=== PATIENT | female | born 1955 | race Caucasian/White ===

== ENCOUNTER 2020-04-16 23:30 | Emergency (ER) | payer MEDICARE, OTHER ==
[2020-04-16 23:39] VITALS: BP 156/99; PULSE 111
[2020-04-16] MEDS ORDERED: Sodium Chloride 0.9% 10 ML Syringe FLUSH PRN (23:46)
[2020-04-16] MEDS ORDERED: Sodium Chloride 0.9% 500 ML IV ONE (23:47)
--- NOTE | 2020-04-16 23:47 | EDM.PDOC ---
ED HPI GENERAL MEDICAL PROBLEM - General Chief Complaint: Genitourinary Problem Stated Complaint: [facility] Time Seen by Provider: 04/16/20 23:44 Source of Information: Reports: Patient, EMS, RN Notes Reviewed - History of Present Illness INITIAL COMMENTS - FREE TEXT/NARRATIVE: 65 yr old female comes has been brought in by EMS for generalized weakness, difficulty walking. She was noted to be incontinent of foul smelling urine upon EMS arrival. With their help she was able to walk to and from her bathroom prior to transport. She has void frequency and dysuria. Probable chills, no definite fever. No chest pain, cough or difficulty breathing. Hx Htn, diabetes on insulin. - Related Data Allergies Allergy/AdvReac Type Severity Reaction Status Date / Time No Known Allergies Allergy Verified 04/16/20 23:39 Home Meds: Home Meds Aspirin 81 mg PO DAILY 06/29/16 [History] Calcium Carbonate/Vitamin D3 [Calcium 600-Vit D3 800 Tablet] 1 each PO DAILY 06/29/16 [History] Multivitamin with Minerals [Fer Multivitamin with Mineral] 1 tab PO DAILY 06/29/16 [History] allopurinoL [Allopurinol] 150 mg PO DAILY 06/29/16 [History] Apixaban [Eliquis] 2.5 mg PO BID #60 tablet 07/04/16 [Rx] Cholecalciferol (Vitamin D3) [Vitamin D3] 1,000 units PO DAILY 04/01/19 [History] DULoxetine [Cymbalta] 30 mg PO DAILY 04/01/19 [History] Diltiazem [Dilacor XR] 240 mg PO DAILY 04/01/19 [History] Levothyroxine 25 mcg PO DAILY 04/01/19 [History] Liraglutide [Victoza] 1.8 mg SUBCUT DAILY 04/01/19 [History] Oxybutynin 5 mg PO BID 04/01/19 [History] Rosuvastatin [Crestor] 20 mg PO DAILY 04/01/19 [History] Albuterol/Ipratropium [DuoNeb 3.0-0.5 MG/3 ML] 3 ml NEB QIDRT PRN neb 04/08/19 [Rx] Azithromycin [Zithromax] 250 mg PO DAILY #3 tab 04/08/19 [Rx] Furosemide [Lasix] 20 mg PO DAILY #7 tablet 04/08/19 [Rx] Insulin Aspart [NovoLOG] See Protocol SQ WITHMEALSANDBED #3 bottle 04/08/19 [Rx] Insulin Glarg,Human.Rec.Analog [Lantus] 42 unit SUBCUT Q24H ml 04/08/19 [Rx] Insulin Lispro [HumaLOG] 10 unit SUBCUT TIDAC vial 04/08/19 [Rx] Magnesium Oxide 400 mg PO BID #10 tablet 04/08/19 [Rx] Metoprolol Succinate [Toprol XL] 75 mg PO DAILY 30 Days tab.er 04/08/19 [Rx] Sennosides [Senna] 8.6 mg PO DAILY #10 04/08/19 [Rx] Nitrofurantoin Monohyd/M-Cryst [Macrobid 100 mg Capsule] 100 mg PO BID #14 capsule 04/17/20 [Rx] Past Medical History HEENT History: Reports: Cataract Cardiovascular History: Reports: Afib, High Cholesterol, Hypertension Respiratory History: Reports: None Gastrointestinal History: Reports: None Genitourinary History: Reports: Urinary Incontinence, Other (See Below) Other Genitourinary History: urine frequency, states that kidneys are not functioning properly. ANTHROPOMETRIST History: Reports: None Musculoskeletal History: Reports: Arthritis, Gout Neurological History: Reports: None Psychiatric History: Reports: None Endocrine/Metabolic History: Reports: Diabetes, Type II, Other (See Below) Other Endocrine/Metabolic History: takes something for thyroid can't remember Hematologic History: Reports: None Immunologic History: Reports: None Oncologic (Cancer) History: Reports: None Dermatologic History: Reports: None - Infectious Disease History Infectious Disease History: Reports: None - Past Surgical History HEENT Surgical History: Reports: None Cardiovascular Surgical History: Reports: None Female Surgical History: Reports: None Endocrine Surgical History: Reports: None Musculoskeletal Surgical History: Reports: None Social & Family History - Family History Family Medical History: Noncontributory - Tobacco Use Smoking Status *Q: Never Smoker - Caffeine Use Caffeine Use: Reports: None - Recreational Drug Use Recreational Drug Use: No ED ROS GENERAL - Review of Systems Review Of Systems: See Below Constitutional: Reports: Chills. Denies: Fever HEENT: Reports: No Symptoms Respiratory: Denies: Shortness of Breath, Cough Cardiovascular: Denies: Chest Pain Endocrine: Reports: Fatigue GI/Abdominal: Denies: Abdominal Pain, Nausea, Vomiting Musculoskeletal: Reports: No Symptoms Skin: Reports: No Symptoms Neurological: Reports: Dizziness, Difficulty Walking. Denies: Numbness, Tingling, Trouble Speaking, Weakness ED EXAM, GENERAL - Physical Exam Exam: See Below General Appearance: Alert, No Apparent Distress (at time of exam) Eye Exam: Bilateral Eye: PERRL Head: Atraumatic. No: Facial Swelling Neck: Supple Respiratory/Chest: No Respiratory Distress, Lungs Clear, Normal Breath Sounds. No: Rhonchi, Wheezing Cardiovascular: Tachycardia GI/Abdominal: Soft, Non-Tender Back Exam: No: CVA Tenderness (L), CVA Tenderness (R) Extremities: No: Leg Pain, Increased Warmth, Redness Neurological: Alert, No Motor/Sensory Deficits Skin Exam: Warm, Dry, Normal Color, No Rash Course - Vital Signs Last Recorded V/S: Last Vital Signs Temp 97.3 F 04/16/20 23:34 Pulse 111 H 04/16/20 23:34 Resp 18 04/16/20 23:34 BP 156/99 H 04/16/20 23:34 Pulse Ox 92 L 04/17/20 03:28 Orthostatic Blood Pressure [ 146/112 Standing] Orthostatic Blood Pressure [ 138/87 Supine] - Orders/Labs/Meds Labs: Laboratory Tests 04/16/20 04/16/20 04/16/20 Range/Units 23:43 23:43 23:43 WBC 6.00 (3.98-10.04) K/mm3 RBC 5.25 H (3.98-5.22) M/mm3 Hgb 13.5 (11.2-15.7) gm/dl Hct 43.0 (34.1-44.9) % MCV 81.9 D (79.4-94.8) fl MCH 25.7 (25.6-32.2) pg MCHC 31.4 L (32.2-35.5) g/dl RDW Std Deviation 50.6 H (36.4-46.3) fL Plt Count 323 (182-369) K/mm3 MPV 10.2 (9.4-12.3) fl Neut % (Auto) 72.8 H (34.0-71.1) % Lymph % (Auto) 12.5 L (19.3-51.7) % [place] % (Auto) 13.2 H (4.7-12.5) % Eos % (Auto) 0.8 (0.7-5.8) Baso % (Auto) 0.5 (0.1-1.2) % Neut # (Auto) 4.37 (1.56-6.13) K/mm3 Lymph # (Auto) 0.75 L (1.18-3.74) K/mm3 [place]ie # (Auto) 0.79 H (0.24-0.36) K/mm3 Eos # (Auto) 0.05 (0.04-0.36) K/mm3 Baso # (Auto) 0.03 (0.01-0.08) K/mm3 Puncture Site ABG pH (7.35-7.45) ABG pCO2 (35.0-45.0) mmHg ABG pO2 (80.0-100.0) mmHg ABG HCO3 (22.0-26.0) meq/L ABG O2 Saturation (96.0-97.0) % ABG Base Excess (-2-2.0) Jose Test O2 Delivery Device Oxygen Flow Rate Sodium 134 L (136-145) mEq/L Potassium 4.1 (3.5-5.1) mEq/L Chloride 98 (98-107) mEq/L Carbon Dioxide 29 (21-32) mEq/L Anion Gap 11.1 (5-15) BUN 36 H (7-18) mg/dL Creatinine 1.7 H (0.55-1.02) mg/dL Est Cr Clr Drug Dosing 23.07 mL/min Estimated GFR (MDRD) 30 (>60) mL/min BUN/Creatinine Ratio 21.2 H (14-18) Glucose 182 H (80-115) mg/dL Lactic Acid (0.4-2.0) mmol/L Calcium 9.6 (8.5-10.1) mg/dL Total Bilirubin 0.5 (0.2-1.0) mg/dL AST 22 (15-37) U/L ALT 33 (14-59) U/L Alkaline Phosphatase 117 H (46-116) U/L C-Reactive Protein 2.3 H* (<1.0) mg/dL NT-Pro-B Natriuret Pep (0-125) pg/mL Total Protein 7.9 (6.4-8.2) g/dl Albumin 2.8 L (3.4-5.0) g/dl Globulin 5.1 gm/dL Albumin/Globulin Ratio 0.6 L (1-2) Urine Color (Yellow) Urine Appearance (Clear) Urine pH (5.0-8.0) Ur Specific [place] (1.005-1.030) Urine Protein (Negative) Urine Glucose (UA) (Negative) Urine Ketones (Negative) Urine Occult Blood (Negative) Urine Nitrite (Negative) Urine Bilirubin (Negative) Urine Urobilinogen (0.2-1.0) Ur Leukocyte Esterase (Negative) Urine RBC (0-5) /hpf Urine WBC (0-5) /hpf Urine WBC Clumps (NOT SEEN) /hpf Ur Epithelial Cells (0-5) /hpf Urine Bacteria (FEW) /hpf Urine Mucus (FEW) /hpf 04/16/20 04/17/20 04/17/20 Range/Units 23:46 00:15 02:47 WBC (3.98-10.04) K/mm3 RBC (3.98-5.22) M/mm3 Hgb (11.2-15.7) gm/dl Hct (34.1-44.9) % MCV (79.4-94.8) fl MCH (25.6-32.2) pg MCHC (32.2-35.5) g/dl RDW Std Deviation (36.4-46.3) fL Plt Count (182-369) K/mm3 MPV (9.4-12.3) fl Neut % (Auto) (34.0-71.1) % Lymph % (Auto) (19.3-51.7) % Davie % (Auto) (4.7-12.5) % Eos % (Auto) (0.7-5.8) Baso % (Auto) (0.1-1.2) % Neut # (Auto) (1.56-6.13) K/mm3 Lymph # (Auto) (1.18-3.74) K/mm3 Davie # (Auto) (0.24-0.36) K/mm3 Eos # (Auto) (0.04-0.36) K/mm3 Baso # (Auto) (0.01-0.08) K/mm3 Puncture Site Lt radial ABG pH 7.43 (7.35-7.45) ABG pCO2 38.1 (35.0-45.0) mmHg ABG pO2 64.0 L (80.0-100.0) mmHg ABG HCO3 24.8 (22.0-26.0) meq/L ABG O2 Saturation 92.5 L (96.0-97.0) % ABG Base Excess 1.2 (-2-2.0) Jose Test Positive O2 Delivery Device Nasal cannula Oxygen Flow Rate 2.0 Sodium (136-145) mEq/L Potassium (3.5-5.1) mEq/L Chloride (98-107) mEq/L Carbon Dioxide (21-32) mEq/L Anion Gap (5-15) BUN (7-18) mg/dL Creatinine (0.55-1.02) mg/dL Est Cr Clr Drug Dosing mL/min Estimated GFR (MDRD) (>60) mL/min BUN/Creatinine Ratio (14-18) Glucose (80-115) mg/dL Lactic Acid 0.9 (0.4-2.0) mmol/L Calcium (8.5-10.1) mg/dL Total Bilirubin (0.2-1.0) mg/dL AST (15-37) U/L ALT (14-59) U/L Alkaline Phosphatase (46-116) U/L C-Reactive Protein (<1.0) mg/dL NT-Pro-B Natriuret Pep (0-125) pg/mL Total Protein (6.4-8.2) g/dl Albumin (3.4-5.0) g/dl Globulin gm/dL Albumin/Globulin Ratio (1-2) Urine Color Brown H (Yellow) Urine Appearance Turbid H (Clear) Urine pH 6.0 (5.0-8.0) Ur Specific [place] 1.020 (1.005-1.030) Urine Protein 3+ H (Negative) Urine Glucose (UA) Trace H (Negative) Urine Ketones Trace H (Negative) Urine Occult Blood 3+ H (Negative) Urine Nitrite Negative (Negative) Urine Bilirubin 2+ H (Negative) Urine Urobilinogen 1.0 (0.2-1.0) Ur Leukocyte Esterase 3+ H (Negative) Urine RBC Too numerous to cnt H (0-5) /hpf Urine WBC >100 H (0-5) /hpf Urine WBC Clumps Many (NOT SEEN) /hpf Ur Epithelial Cells Not seen (0-5) /hpf Urine Bacteria Many H (FEW) /hpf Urine Mucus Not seen (FEW) /hpf 04/17/20 Range/Units 03:40 WBC (3.98-10.04) K/mm3 RBC (3.98-5.22) M/mm3 Hgb (11.2-15.7) gm/dl Hct (34.1-44.9) % MCV (79.4-94.8) fl MCH (25.6-32.2) pg MCHC (32.2-35.5) g/dl RDW Std Deviation (36.4-46.3) fL Plt Count (182-369) K/mm3 MPV (9.4-12.3) fl Neut % (Auto) (34.0-71.1) % Lymph % (Auto) (19.3-51.7) % [place]ie % (Auto) (4.7-12.5) % Eos % (Auto) (0.7-5.8) Baso % (Auto) (0.1-1.2) % Neut # (Auto) (1.56-6.13) K/mm3 Lymph # (Auto) (1.18-3.74) K/mm3 [place]ie # (Auto) (0.24-0.36) K/mm3 Eos # (Auto) (0.04-0.36) K/mm3 Baso # (Auto) (0.01-0.08) K/mm3 Puncture Site ABG pH (7.35-7.45) ABG pCO2 (35.0-45.0) mmHg ABG pO2 (80.0-100.0) mmHg ABG HCO3 (22.0-26.0) meq/L ABG O2 Saturation (96.0-97.0) % ABG Base Excess (-2-2.0) Jose Test O2 Delivery Device Oxygen Flow Rate Sodium (136-145) mEq/L Potassium (3.5-5.1) mEq/L Chloride (98-107) mEq/L Carbon Dioxide (21-32) mEq/L Anion Gap (5-15) BUN (7-18) mg/dL Creatinine (0.55-1.02) mg/dL Est Cr Clr Drug Dosing mL/min Estimated GFR (MDRD) (>60) mL/min BUN/Creatinine Ratio (14-18) Glucose (80-115) mg/dL Lactic Acid (0.4-2.0) mmol/L Calcium (8.5-10.1) mg/dL Total Bilirubin (0.2-1.0) mg/dL AST (15-37) U/L ALT (14-59) U/L Alkaline Phosphatase (46-116) U/L C-Reactive Protein (<1.0) mg/dL NT-Pro-B Natriuret Pep 2481 H (0-125) pg/mL Total Protein (6.4-8.2) g/dl Albumin (3.4-5.0) g/dl Globulin gm/dL Albumin/Globulin Ratio (1-2) Urine Color (Yellow) Urine Appearance (Clear) Urine pH (5.0-8.0) Ur Specific [place] (1.005-1.030) Urine Protein (Negative) Urine Glucose (UA) (Negative) Urine Ketones (Negative) Urine Occult Blood (Negative) Urine Nitrite (Negative) Urine Bilirubin (Negative) Urine Urobilinogen (0.2-1.0) Ur Leukocyte Esterase (Negative) Urine RBC (0-5) /hpf Urine WBC (0-5) /hpf Urine WBC Clumps (NOT SEEN) /hpf Ur Epithelial Cells (0-5) /hpf Urine Bacteria (FEW) /hpf Urine Mucus (FEW) /hpf Meds: Medications Discontinued Medications Generic Name Dose Route Start Last Admin Trade Name Dipti PRN Reason Stop Dose Admin Albuterol/Ipratropium 3 ml 04/17/20 03:20 04/17/20 03:28 Duoneb 3.0-0.5 Mg/3 Ml NEB 04/17/20 03:21 3 ml ONETIME ONE Administration Furosemide 20 mg 04/17/20 03:20 04/17/20 03:47 Lasix IVPUSH 04/17/20 03:21 20 mg NOW ONE Administration Sodium Chloride 500 mls @ 999 mls/hr 04/16/20 23:47 04/17/20 00:40 Normal Saline IV 04/17/20 00:17 Infused .BOLUS ONE Infusion Ceftriaxone Sodium 2 gm/ 100 mls @ 200 mls/hr 04/17/20 00:58 04/17/20 01:17 Sodium Chloride IV 04/17/20 01:27 Not Given ONETIME ONE Ceftriaxone Sodium 2 gm/ 100 mls @ 200 mls/hr 04/17/20 01:15 04/17/20 01:23 Sodium Chloride IV 200 mls/hr Q24H ESDRAS Administration Nitrofurantoin Macrocrystals 100 mg 04/17/20 05:10 04/17/20 05:49 Macrobid PO 04/17/20 05:11 100 mg ONETIME ONE Administration Sodium Chloride 10 ml 04/16/20 23:46 04/17/20 00:04 Saline Flush FLUSH 10 ml ASDIRECTED PRN Administration Keep Vein Open - Re-Assessments/Exams Free Text/Narrative Re-Assessment/Exam: 04/17/20 01:52 Urine markedly infected, WBC nl, lactic acid 0.9, CRP 2.3. Have ordered rocephin 2 grams IV. Blood culture ordered with initial labs, urine culture has also been ordered. Will check ortho's once her 1 liter of NS is in and see how she does standing and walking. 04/17/20 02:40. She did OK with Orthos but had trouble getting up to her feet and was unstable walking even with 2 nurses helping her. I am also told she dropped her sats to 85, now 88 on room air, were 91 at time of arrival. Will check a CXR and ABGs. 04/17/20 03:45. CXR shows mild pul chato. ABG's show pO2 of 64 and otherwise nl. Have ordered a duoneb for her and also 20 mg lasix. 04/17/20 05:26Feeling much better. Has been up to the bathroom a time or 2 and doing very well with that, much stronger and more stable walking. She wants to go home. will start on macrobid 100 mg bid. Departure - Departure Time of Disposition: 05:29 Disposition: Home, Self-Care 01 Condition: Fair Clinical Impression: UTI, Urinary tract infectious disease - Discharge Information Prescriptions: Nitrofurantoin Monohyd/M-Cryst [Macrobid 100 mg Capsule] 100 mg PO BID #14 capsule Instructions: Urinary Tract Infection, Adult, [id number] Referrals: PCP,None [Primary Care Provider] - Forms: ED Department Discharge Additional Instructions: macrobid antibiotic 100 mg twice daily. You have been given your first dose here in the ED. Next dose this evening and than continue that twice daily for 1 week or until gone. That prescription has been sent electronically to the [facility] pharmacy. Follow up with Dr Rodriguez or one of the clinic providers Monday or next available appointment early next week for recheck. Return to ED as needed if symptoms worsening in any way. Sepsis Event Note (ED) - Evaluation Sepsis Screening Result: No Definite Risk
[2020-04-17] MEDS ORDERED: cefTRIAXone 2 GM in Sodium Chloride 0.9% 100 ML IV ONE (00:58)
[2020-04-17] MEDS ORDERED: cefTRIAXone 2 GM in Sodium Chloride 0.9% 100 ML IV SCH (01:15)
[2020-04-17] MEDS ORDERED: Furosemide 40 MG/4 ML VIAL IVPUSH ONE (03:20)
[2020-04-17] MEDS ORDERED: Albuterol/Ipratropium 3.0-0.5 MG/3 ML Neb Soln NEB ONE (03:20)
[2020-04-17] MEDS ORDERED: Nitrofurantoin Monohydrate/Macrocrystalline 100 MG Cap PO ONE (05:10)
--- NOTE | 2020-04-17 08:06 | CR ---
Chest: Portable view of the chest was obtained. Comparison: Prior chest x-ray of 06/29/16. Heart his slightly enlarged. Upper mediastinum is stable. Lungs are clear with no acute parenchymal change. Bony structures are grossly intact. Impression: 1. Heart slightly enlarged. 2. Nothing acute is appreciated on portable chest x-ray. Diagnostic code #2 This report was dictated in MDT
== END 2020-04-17 08:40 | disposition home or self-care (01) ==
LOC: JD.ED 23:30
DX: N39.0 Urinary tract infection, site not specified (principal); I48.91 Unspecified atrial fibrillation; E78.00 Pure hypercholesterolemia, unspecified; I10 Essential (primary) hypertension; M10.9 Gout, unspecified; E11.9 Type 2 diabetes mellitus without complications; Z79.4 Long term (current) use of insulin; Z79.82 Long term (current) use of aspirin; Z79.01 Long term (current) use of anticoagulants; Z79.899 Other long term (current) drug therapy
CPT/HCPCS: 36415; 36600; 71045; 80053; 81001; 82803; 83605; 83880; 85025; 86140; 87040; 87086; 87088; 87186; 94640; 96361; 96365; 96375; 99285; A9270; J0696; J1940; J7030; J7050; 99283; J7620-GY

== ENCOUNTER 2020-09-04 15:28 | Emergency (ER) | payer MEDICARE ==
[2020-09-04 15:40] VITALS: BP 128/81; PULSE 79
[2020-09-04] MEDS ORDERED: 50% Dextrose in Water 50 ML Syringe IVPUSH PRN (15:42)
[2020-09-04] MEDS ORDERED: Sodium Chloride 0.9% 10 ML Syringe FLUSH PRN (15:42)
[2020-09-04] MEDS ORDERED: cefTRIAXone 1 GM in Sodium Chloride 0.9% 100 ML IV ONE (16:37)
--- NOTE | 2020-09-04 17:47 | EDM.PDOC ---
<Ralph Bernabe - Last Filed: 09/08/20 07:14> ED HPI GENERAL MEDICAL PROBLEM - General Chief Complaint: Diabetic Complaint Stated Complaint: [facility] Time Seen by Provider: 09/04/20 15:42 - Related Data Allergies Allergy/AdvReac Type Severity Reaction Status Date / Time No Known Allergies Allergy Verified 09/04/20 19:53 Home Meds: Home Meds Aspirin 81 mg PO DAILY 06/29/16 [History] Calcium Carbonate/Vitamin D3 [Calcium 600-Vit D3 800 Tablet] 1 each PO DAILY 06/29/16 [History] Multivitamin with Minerals [Fer Multivitamin with Mineral] 1 tab PO DAILY 06/29/16 [History] allopurinoL [Allopurinol] 150 mg PO DAILY 06/29/16 [History] Apixaban [Eliquis] 2.5 mg PO BID #60 tablet 07/04/16 [Rx] Cholecalciferol (Vitamin D3) [Vitamin D3] 1,000 units PO DAILY 04/01/19 [History] DULoxetine [Cymbalta] 30 mg PO DAILY 04/01/19 [History] Diltiazem [Dilacor XR] 240 mg PO DAILY 04/01/19 [History] Levothyroxine 25 mcg PO DAILY 04/01/19 [History] Liraglutide [Victoza] 1.8 mg SUBCUT DAILY 04/01/19 [History] Oxybutynin 5 mg PO BID 04/01/19 [History] Rosuvastatin [Crestor] 20 mg PO DAILY 04/01/19 [History] Albuterol/Ipratropium [DuoNeb 3.0-0.5 MG/3 ML] 3 ml NEB QIDRT PRN neb 04/08/19 [Rx] Furosemide [Lasix] 20 mg PO DAILY #7 tablet 04/08/19 [Rx] Insulin Aspart [NovoLOG] See Protocol SQ WITHMEALSANDBED #3 bottle 04/08/19 [Rx] Insulin Glarg,Human.Rec.Analog [Lantus] 42 unit SUBCUT Q24H ml 04/08/19 [Rx] Insulin Lispro [HumaLOG] 10 unit SUBCUT TIDAC vial 04/08/19 [Rx] Magnesium Oxide 400 mg PO BID #10 tablet 04/08/19 [Rx] Metoprolol Succinate [Toprol XL] 75 mg PO DAILY 30 Days tab.er 04/08/19 [Rx] Sennosides [Senna] 8.6 mg PO DAILY #10 04/08/19 [Rx] Nitrofurantoin Monohyd/M-Cryst [Macrobid 100 mg Capsule] 100 mg PO BID #14 capsule 04/17/20 [Rx] Course - Re-Assessments/Exams Free Text/Narrative Re-Assessment/Exam: 09/07/20 07:06 In receipt of urine culture which is growing out Klebsiella,pneumoniae. It is sensitive to all antibiotics . Patient recieved Rocephin 1gm IV in the ED and was sent to [facility] in [facility] for admission. Culture report forwarded to [facility] in [facility]. Departure - Departure Disposition: DC/Tfer to [facility] 02 Clinical Impression: UTI, Urinary tract infectious disease, Nephrotic syndrome in diabetes mellitus Renal failure (ARF), acute on chronic Qualifiers: Acute renal failure type: unspecified Chronic kidney disease stage: unspecified stage Qualified Code(s): N17.9 - Acute kidney failure, unspecified - Discharge Information Referrals: PCP,None [Primary Care Provider] - Forms: ED Department Discharge <Jami Medina - Last Filed: 09/08/20 11:31> ED HPI GENERAL MEDICAL PROBLEM - General Source of Information: Reports: Patient, RN Notes Reviewed History Limitations: Reports: No Limitations - History of Present Illness INITIAL COMMENTS - FREE TEXT/NARRATIVE: Patient is a 65-year-old female presenting to the emergency department by [facility] with complaints of hypoglycemia. Of report was that the patient took her morning insulins which is 34 units of Lantus, 1.8 of Victoza, and 20 units of NovoLog, however set of eating breakfast she went back to bed. A friend came to check on her and help her with her afternoon insulin. They could not get her home glucose to read because it was too low. On EMS arrival, her glucose was 49. She received a half a sandwich, orange juice, glucose tabs which brought it up to 51. On presentation to the ER, her glucose was 80. She is alert and oriented. She does complain of some dysuria with urination and nursing reports that she has foul-smelling urine from a straight catheterization. Patient also voices concern with regards to periorbital edema which began yesterday with the right being worse than the left. She denies any pain or itching to her eyes. Past Medical History HEENT History: Reports: Cataract Cardiovascular History: Reports: Afib, High Cholesterol, Hypertension Respiratory History: Reports: None Gastrointestinal History: Reports: None Genitourinary History: Reports: Urinary Incontinence, Other (See Below) Other Genitourinary History: urine frequency, states that kidneys are not functioning properly. [employer] P[employer]ER History: Reports: None Musculoskeletal History: Reports: Arthritis, Gout Neurological History: Reports: None Psychiatric History: Reports: None Endocrine/Metabolic History: Reports: Diabetes, Type II, Other (See Below) Other Endocrine/Metabolic History: takes something for thyroid can't remember Hematologic History: Reports: None Immunologic History: Reports: None Oncologic (Cancer) History: Reports: None Dermatologic History: Reports: None - Infectious Disease History Infectious Disease History: Reports: None - Past Surgical History HEENT Surgical History: Reports: None Cardiovascular Surgical History: Reports: None Female Surgical History: Reports: None Endocrine Surgical History: Reports: None Musculoskeletal Surgical History: Reports: None Dermatological Surgical History: Reports: None Social & Family History - Family History Family Medical History: No Pertinent Family History - Tobacco Use Tobacco Use Status *Q: Former Tobacco User Used Tobacco, but Quit: Yes Month/Year Tobacco Last Used: 1999 Second Hand Smoke Exposure: No - Caffeine Use Caffeine Use: Reports: Coffee - Recreational Drug Use Recreational Drug Use: No ED ROS GENERAL - Review of Systems Review Of Systems: See Below Constitutional: Reports: No Symptoms. Denies: Fever, Chills, Weakness HEENT: Reports: Other (Periorbital edema bilaterally with the right worse than the left) Respiratory: Reports: No Symptoms. Denies: Shortness of Breath, Cough Cardiovascular: Reports: No Symptoms Endocrine: Reports: Low Glucose GI/Abdominal: Reports: No Symptoms : Reports: Dysuria, Frequency. Denies: Flank Pain Musculoskeletal: Reports: No Symptoms Skin: Reports: No Symptoms Neurological: Reports: No Symptoms Psychiatric: Reports: No Symptoms Hematologic/Lymphatic: Reports: No Symptoms Immunologic: Reports: No Symptoms ED EXAM GENERAL NO PERIP PULSE - Physical Exam Exam: See Below General Appearance: Alert, WD/WN, No Apparent Distress Eye Exam: Bilateral Eye: Periorbital Changes (Significant periorbital edema to the upper and lower eyelids on the right side. Mild periorbital edema to right eye.) Respiratory/Chest: No Respiratory Distress, Lungs Clear, Normal Breath Sounds, No Accessory Muscle Use, Chest Non-Tender Cardiovascular: Normal Peripheral Pulses, Regular Rate, Rhythm, No Edema, No Gallop, No JVD, No Murmur, No Rub GI/Abdominal: Normal Bowel Sounds, Soft, Non-Tender, No Organomegaly, No Distention, No Abnormal Bruit, No Mass Neurological: Alert, Oriented, CN II-XII Intact, Normal Cognition, Normal Gait, Normal Reflexes, No Motor/Sensory Deficits Psychiatric: Normal Affect, Normal Mood Course - Vital Signs Last Recorded V/S: Last Vital Signs Temp 98.1 F 09/04/20 15:34 Pulse 79 09/04/20 15:34 Resp 20 09/04/20 15:34 BP 128/81 09/04/20 15:34 Pulse Ox 91 L 09/04/20 15:34 - Orders/Labs/Meds Labs: Laboratory Tests 09/04/20 09/04/20 09/04/20 Range/Units 15:43 15:43 15:44 WBC (3.98-10.04) K/mm3 RBC (3.98-5.22) M/mm3 Hgb (11.2-15.7) gm/dl Hct (34.1-44.9) % MCV (79.4-94.8) fl MCH (25.6-32.2) pg MCHC (32.2-35.5) g/dl RDW Std Deviation (36.4-46.3) fL Plt Count (182-369) K/mm3 MPV (9.4-12.3) fl Neut % (Auto) (34.0-71.1) % Lymph % (Auto) (19.3-51.7) % [place] % (Auto) (4.7-12.5) % Eos % (Auto) (0.7-5.8) Baso % (Auto) (0.1-1.2) % Neut # (Auto) (1.56-6.13) K/mm3 Lymph # (Auto) (1.18-3.74) K/mm3 [place] # (Auto) (0.24-0.36) K/mm3 Eos # (Auto) (0.04-0.36) K/mm3 Baso # (Auto) (0.01-0.08) K/mm3 Manual Slide Review Sodium (136-145) mEq/L Potassium (3.5-5.1) mEq/L Chloride (98-107) mEq/L Carbon Dioxide (21-32) mEq/L Anion Gap (5-15) BUN (7-18) mg/dL Creatinine (0.55-1.02) mg/dL Est Cr Clr Drug Dosing mL/min Estimated GFR (MDRD) (>60) mL/min BUN/Creatinine Ratio (14-18) Glucose (80-115) mg/dL POC Glucose (80-115) mg/dL Lactic Acid (0.4-2.0) mmol/L Calcium (8.5-10.1) mg/dL Magnesium (1.8-2.4) mg/dl Total Bilirubin (0.2-1.0) mg/dL AST (15-37) U/L ALT (14-59) U/L Alkaline Phosphatase (46-116) U/L Troponin I (0.00-0.056) ng/mL C-Reactive Protein (<1.0) mg/dL NT-Pro-B Natriuret Pep (0-125) pg/mL Total Protein (6.4-8.2) g/dl Albumin (3.4-5.0) g/dl Globulin gm/dL Albumin/Globulin Ratio (1-2) Free T4 (0.76-1.46) ng/dL TSH 3rd Generation (0.358-3.74) uIU/mL Urine Color Yellow (Yellow) Urine Appearance Cloudy H (Clear) Urine pH 6.5 (5.0-8.0) Ur Specific Glennie 1.025 (1.005-1.030) Urine Protein 3+ H (Negative) Urine Glucose (UA) Negative (Negative) Urine Ketones Negative (Negative) Urine Occult Blood 2+ H (Negative) Urine Nitrite Negative (Negative) Urine Bilirubin Negative (Negative) Urine Urobilinogen 0.2 (0.2-1.0) Ur Leukocyte Esterase 2+ H (Negative) Urine RBC 0-5 (0-5) /hpf Urine WBC Too numerous to cnt H (0-5) /hpf Ur Squamous Epith Cells 0-5 (0-5) /hpf Urine Bacteria Many H (FEW) /hpf Urine Mucus Not seen (FEW) /hpf Ur Random Creatinine 52.6 (30.0-125.0) mg/dL U Random Total Protein 316.5 H (0.0-11.8) mg/dL SARS-CoV-2 RNA (DANNY) (NEGATIVE) 09/04/20 09/04/20 09/04/20 Range/Units 15:45 15:45 15:45 WBC 7.59 (3.98-10.04) K/mm3 RBC 4.96 (3.98-5.22) M/mm3 Hgb 11.6 D (11.2-15.7) gm/dl Hct 40.2 (34.1-44.9) % MCV 81.0 (79.4-94.8) fl MCH 23.4 L (25.6-32.2) pg MCHC 28.9 L (32.2-35.5) g/dl RDW Std Deviation 53.5 H (36.4-46.3) fL Plt Count 452 H D (182-369) K/mm3 MPV 9.4 (9.4-12.3) fl Neut % (Auto) 61.6 (34.0-71.1) % Lymph % (Auto) 20.7 (19.3-51.7) % [place] % (Auto) 15.7 H (4.7-12.5) % Eos % (Auto) 1.2 (0.7-5.8) Baso % (Auto) 0.7 (0.1-1.2) % Neut # (Auto) 4.68 (1.56-6.13) K/mm3 Lymph # (Auto) 1.57 (1.18-3.74) K/mm3 [place] # (Auto) 1.19 H (0.24-0.36) K/mm3 Eos # (Auto) 0.09 (0.04-0.36) K/mm3 Baso # (Auto) 0.05 (0.01-0.08) K/mm3 Manual Slide Review Abnormal smear Sodium 143 (136-145) mEq/L Potassium 4.5 (3.5-5.1) mEq/L Chloride 107 (98-107) mEq/L Carbon Dioxide 28 (21-32) mEq/L Anion Gap 12.5 (5-15) BUN 39 H (7-18) mg/dL Creatinine 2.1 H (0.55-1.02) mg/dL Est Cr Clr Drug Dosing 18.67 mL/min Estimated GFR (MDRD) 23 (>60) mL/min BUN/Creatinine Ratio 18.6 H (14-18) Glucose 90 (80-115) mg/dL POC Glucose (80-115) mg/dL Lactic Acid (0.4-2.0) mmol/L Calcium 8.8 (8.5-10.1) mg/dL Magnesium (1.8-2.4) mg/dl Total Bilirubin 0.3 (0.2-1.0) mg/dL AST 42 H (15-37) U/L ALT 46 (14-59) U/L Alkaline Phosphatase 138 H (46-116) U/L Troponin I 0.056 (0.00-0.056) ng/mL C-Reactive Protein 0.8 (<1.0) mg/dL NT-Pro-B Natriuret Pep (0-125) pg/mL Total Protein 7.1 (6.4-8.2) g/dl Albumin 2.6 L (3.4-5.0) g/dl Globulin 4.5 gm/dL Albumin/Globulin Ratio 0.6 L (1-2) Free T4 1.29 (0.76-1.46) ng/dL TSH 3rd Generation 2.359 (0.358-3.74) uIU/mL Urine Color (Yellow) Urine Appearance (Clear) Urine pH (5.0-8.0) Ur Specific Glennie (1.005-1.030) Urine Protein (Negative) Urine Glucose (UA) (Negative) Urine Ketones (Negative) Urine Occult Blood (Negative) Urine Nitrite (Negative) Urine Bilirubin (Negative) Urine Urobilinogen (0.2-1.0) Ur Leukocyte Esterase (Negative) Urine RBC (0-5) /hpf Urine WBC (0-5) /hpf Ur Squamous Epith Cells (0-5) /hpf Urine Bacteria (FEW) /hpf Urine Mucus (FEW) /hpf Ur Random Creatinine (30.0-125.0) mg/dL U Random Total Protein (0.0-11.8) mg/dL SARS-CoV-2 RNA (DANNY) (NEGATIVE) 12/25/20 12/25/20 12/25/20 Range/Units 15:45 15:45 16:17 WBC (3.98-10.04) K/mm3 RBC (3.98-5.22) M/mm3 Hgb (11.2-15.7) gm/dl Hct (34.1-44.9) % MCV (79.4-94.8) fl MCH (25.6-32.2) pg MCHC (32.2-35.5) g/dl RDW Std Deviation (36.4-46.3) fL Plt Count (182-369) K/mm3 MPV (9.4-12.3) fl Neut % (Auto) (34.0-71.1) % Lymph % (Auto) (19.3-51.7) % [place] % (Auto) (4.7-12.5) % Eos % (Auto) (0.7-5.8) Baso % (Auto) (0.1-1.2) % Neut # (Auto) (1.56-6.13) K/mm3 Lymph # (Auto) (1.18-3.74) K/mm3 [place] # (Auto) (0.24-0.36) K/mm3 Eos # (Auto) (0.04-0.36) K/mm3 Baso # (Auto) (0.01-0.08) K/mm3 Manual Slide Review Sodium (136-145) mEq/L Potassium (3.5-5.1) mEq/L Chloride (98-107) mEq/L Carbon Dioxide (21-32) mEq/L Anion Gap (5-15) BUN (7-18) mg/dL Creatinine (0.55-1.02) mg/dL Est Cr Clr Drug Dosing mL/min Estimated GFR (MDRD) (>60) mL/min BUN/Creatinine Ratio (14-18) Glucose (80-115) mg/dL POC Glucose (80-115) mg/dL Lactic Acid 1.9 (0.4-2.0) mmol/L Calcium (8.5-10.1) mg/dL Magnesium 2.3 (1.8-2.4) mg/dl Total Bilirubin (0.2-1.0) mg/dL AST (15-37) U/L ALT (14-59) U/L Alkaline Phosphatase (46-116) U/L Troponin I (0.00-0.056) ng/mL C-Reactive Protein (<1.0) mg/dL NT-Pro-B Natriuret Pep 3963 H (0-125) pg/mL Total Protein (6.4-8.2) g/dl Albumin (3.4-5.0) g/dl Globulin gm/dL Albumin/Globulin Ratio (1-2) Free T4 (0.76-1.46) ng/dL TSH 3rd Generation (0.358-3.74) uIU/mL Urine Color (Yellow) Urine Appearance (Clear) Urine pH (5.0-8.0) Ur Specific Glennie (1.005-1.030) Urine Protein (Negative) Urine Glucose (UA) (Negative) Urine Ketones (Negative) Urine Occult Blood (Negative) Urine Nitrite (Negative) Urine Bilirubin (Negative) Urine Urobilinogen (0.2-1.0) Ur Leukocyte Esterase (Negative) Urine RBC (0-5) /hpf Urine WBC (0-5) /hpf Ur Squamous Epith Cells (0-5) /hpf Urine Bacteria (FEW) /hpf Urine Mucus (FEW) /hpf Ur Random Creatinine (30.0-125.0) mg/dL U Random Total Protein (0.0-11.8) mg/dL SARS-CoV-2 RNA (DANNY) (NEGATIVE) 09/04/20 09/04/20 09/04/20 Range/Units 16:31 18:16 18:18 WBC (3.98-10.04) K/mm3 RBC (3.98-5.22) M/mm3 Hgb (11.2-15.7) gm/dl Hct (34.1-44.9) % MCV (79.4-94.8) fl MCH (25.6-32.2) pg MCHC (32.2-35.5) g/dl RDW Std Deviation (36.4-46.3) fL Plt Count (182-369) K/mm3 MPV (9.4-12.3) fl Neut % (Auto) (34.0-71.1) % Lymph % (Auto) (19.3-51.7) % [place] % (Auto) (4.7-12.5) % Eos % (Auto) (0.7-5.8) Baso % (Auto) (0.1-1.2) % Neut # (Auto) (1.56-6.13) K/mm3 Lymph # (Auto) (1.18-3.74) K/mm3 [place] # (Auto) (0.24-0.36) K/mm3 Eos # (Auto) (0.04-0.36) K/mm3 Baso # (Auto) (0.01-0.08) K/mm3 Manual Slide Review Sodium (136-145) mEq/L Potassium (3.5-5.1) mEq/L Chloride (98-107) mEq/L Carbon Dioxide (21-32) mEq/L Anion Gap (5-15) BUN (7-18) mg/dL Creatinine (0.55-1.02) mg/dL Est Cr Clr Drug Dosing mL/min Estimated GFR (MDRD) (>60) mL/min BUN/Creatinine Ratio (14-18) Glucose (80-115) mg/dL POC Glucose 143 H 251 H (80-115) mg/dL Lactic Acid (0.4-2.0) mmol/L Calcium (8.5-10.1) mg/dL Magnesium (1.8-2.4) mg/dl Total Bilirubin (0.2-1.0) mg/dL AST (15-37) U/L ALT (14-59) U/L Alkaline Phosphatase (46-116) U/L Troponin I (0.00-0.056) ng/mL C-Reactive Protein (<1.0) mg/dL NT-Pro-B Natriuret Pep (0-125) pg/mL Total Protein (6.4-8.2) g/dl Albumin (3.4-5.0) g/dl Globulin gm/dL Albumin/Globulin Ratio (1-2) Free T4 (0.76-1.46) ng/dL TSH 3rd Generation (0.358-3.74) uIU/mL Urine Color (Yellow) Urine Appearance (Clear) Urine pH (5.0-8.0) Ur Specific Glennie (1.005-1.030) Urine Protein (Negative) Urine Glucose (UA) (Negative) Urine Ketones (Negative) Urine Occult Blood (Negative) Urine Nitrite (Negative) Urine Bilirubin (Negative) Urine Urobilinogen (0.2-1.0) Ur Leukocyte Esterase (Negative) Urine RBC (0-5) /hpf Urine WBC (0-5) /hpf Ur Squamous Epith Cells (0-5) /hpf Urine Bacteria (FEW) /hpf Urine Mucus (FEW) /hpf Ur Random Creatinine (30.0-125.0) mg/dL U Random Total Protein (0.0-11.8) mg/dL SARS-CoV-2 RNA (DANNY) Negative (NEGATIVE) Meds: Medications Discontinued Medications Generic Name Dose Route Start Last Admin Trade Name Freq PRN Reason Stop Dose Admin Dextrose/Water 50 ml 09/04/20 15:42 Dextrose 50% In Water IVPUSH ASDIRECTED PRN Hypoglycemia Furosemide 40 mg 09/04/20 18:19 09/04/20 18:27 Lasix IVPUSH 09/04/20 18:20 40 mg ONETIME ONE Administration Ceftriaxone Sodium 1 gm/ 100 mls @ 200 mls/hr 09/04/20 16:37 09/04/20 17:31 Sodium Chloride IV 09/04/20 17:06 200 mls/hr ONETIME ONE Administration Sodium Chloride 10 ml 09/04/20 15:42 09/04/20 17:27 Saline Flush FLUSH 10 ml ASDIRECTED PRN Administration Keep Vein Open - Re-Assessments/Exams Free Text/Narrative Re-Assessment/Exam: Patient is a 65-year-old female presenting to the emergency department via [facility] with complaints of hypoglycemia dysuria, and significant periorbital edema. Report is that the patient took her insulins this morning but did not eat. When a friend came over to help her with her afternoon insulin, her leukosis was low and would not read. Glucose on arrival to ER was 80. We will have her eat a sandwich and juice. On exam, she does have significant nonerythematous periorbital edema to the right eye as well as a moderate amount to the left eye. She reports that this was first noticeable yesterday. Nursing staff did collect a urine by straight catheter and states that it is purulent and foul smelling indicating she likely has urinary tract infection. Oxygen saturations were in the upper 80s to low 90s on triage. We will monitor this. I have ordered CBC, CMP, CRP, urinalysis, troponin, proBNP, TSH, free T4, urinalysis, EKG, 1 view chest x-ray 09/04/20 1655 Hematology was significant for BUN elevated at 39, creatinine 2.1, GFR low at 23, proBNP 3963, albumin low at 2.6, albumin to globulin ratio low at 0.6. Urinalysis shows cloudy with 3+ protein, 2+ occult blood, 2+ leukocyte esterase, WBCs too numerous to count, and bacteria. Based on patient's significant periorbital edema and lab results, there is concern for possible nephrotic syndrome. I have ordered a random urine creatinine and random urine protein to further assess for this. We will also give Rocephin 1 g IV for treatment of urinary tract infection. Patient's oxygen saturation was maintaining 87 to 89% on room air. She is currently on 2 L of oxygen satting in the mid 90s. Vital signs are otherwise stable. EKG shows A. fib with no evidence of acute ischemia. Troponin was the high end of normal at 0.056. Patient denies any history of chest pain. Bedside glucose completed at 1635 was normal at 147. 09/04/20 18:31 Random urine creatinine was 52.6 and random urine total protein was 316.5. When calculated for urine protein to creatinine ratio. Results showed 6017 which is well over the range for nephrotic syndrome. Given the patient's urinary tract infection, hypoxia, and nephrotic syndrome, I feel she would benefit from admission. Called and spoke with hospitalist, Dr. Canela. He agrees that she should be admitted, however he feels that she should be at a facility with nephrology available to consult. Called and spoke with jail manager at [facility], Dr. Lugo. He stated that he would see her tomorrow in consult and recommended hospitalist admission. Spoke with the hospitalist at [place], Dr. Cordero. He has accepted the patient for transfer. Request Lasix 40 mg IV to be given. Covid test is currently pending, therefore when these results are available we will contact [facility] for ground transport. Departure - Departure Time of Disposition: 18:30 Condition: Good Sepsis Event Note (ED) - Evaluation Sepsis Screening Result: No Definite Risk
--- NOTE | 2020-09-04 17:57 | CR ---
Chest: Portable view of the chest was obtained. Comparison: Prior chest x-ray of 04/17/20. Heart size is slightly enlarged. Upper mediastinum is slightly prominent which is stable. Lungs are clear with no acute parenchymal change. Bony structures appear grossly intact. Impression: 1. Findings as noted above which are stable. 2. Nothing acute is appreciated. Diagnostic code #2
[2020-09-04] MEDS ORDERED: Furosemide 40 MG/4 ML VIAL IVPUSH ONE (18:19)
== END 2020-09-04 19:30 ==
LOC: JD.ED 15:28
DX: E11.21 Type 2 diabetes mellitus with diabetic nephropathy (principal); N39.0 Urinary tract infection, site not specified; I12.9 Hypertensive chronic kidney disease with stage 1 through stage 4 chronic kidney disease, or unspecified chronic kidney disease; E11.22 Type 2 diabetes mellitus with diabetic chronic kidney disease; N18.9 Chronic kidney disease, unspecified; N17.9 Acute kidney failure, unspecified; I48.91 Unspecified atrial fibrillation; E78.00 Pure hypercholesterolemia, unspecified; M10.9 Gout, unspecified; Z87.891 Personal history of nicotine dependence; Z20.828 Contact with and (suspected) exposure to other viral communicable diseases; Z79.82 Long term (current) use of aspirin; Z79.01 Long term (current) use of anticoagulants; Z79.4 Long term (current) use of insulin; Z79.899 Other long term (current) drug therapy
CPT/HCPCS: 36415; 71045; 80053; 81001; 82570; 82962; 83605; 83735; 83880; 84156; 84439; 84443; 84484; 85025; 86140; 87040; 87086; 87088; 87186; 93005; 96365; 96375; 99285; J0696; J1940; J7050; U0002